=== PATIENT | female | born 1970 | race Caucasian/White ===

== ENCOUNTER 2017-06-07 13:49 | Emergency (ER) | payer OTHER ==
[~2017-06-07] VITALS: Ht 162.6 cm; Wt 72.3 kg
[2017-06-07 15:33] VITALS: BP 150/100
== END 2017-06-07 15:33 | disposition home or self-care (01) ==
LOC: ED 13:49
DX: S09.92XA Unspecified injury of nose, initial encounter (principal); W50.0XXA Accidental hit or strike by another person, initial encounter; Y93.89 Activity, other specified; Y99.8 Other external cause status; Y92.89 Other specified places as the place of occurrence of the external cause
CPT/HCPCS: J1885

== ENCOUNTER 2018-01-05 16:43 | Emergency (ER) | payer SELFPAY ==
[~2018-01-05] VITALS: Ht 162.6 cm; Wt 72.6 kg
[2018-01-05 16:48] VITALS: Ht 162.6 cm; Wt 72.6 kg
[2018-01-05 17:34] VITALS: BP 177/103
== END 2018-01-05 17:35 | disposition home or self-care (01) ==
LOC: ED 16:43
DX: S83.015A Lateral dislocation of left patella, initial encounter (principal); W01.0XXA Fall on same level from slipping, tripping and stumbling without subsequent striking against object, initial encounter; Y93.89 Activity, other specified; Y92.89 Other specified places as the place of occurrence of the external cause; Y99.8 Other external cause status

== ENCOUNTER 2018-11-25 13:07 | Emergency (ER) | payer OTHER ==
[~2018-11-25] VITALS: Ht 162.6 cm; Wt 70.3 kg
[2018-11-25 13:10] VITALS: Ht 162.6 cm; Wt 70.3 kg
[2018-11-25 13:52] VITALS: BP 127/92
== END 2018-11-25 13:52 | disposition other institution (70) ==
LOC: ED 13:07
DX: F41.0 Panic disorder [episodic paroxysmal anxiety] (principal); Z90.710 Acquired absence of both cervix and uterus
CPT/HCPCS: 99406

== ENCOUNTER 2018-11-25 13:07 | Emergency (ER) | payer OTHER | END 2018-11-25 13:52 | disposition other institution (70) | LOC: ED 13:07 | DX: Z02.89 Encounter for other administrative examinations (principal) ==